=== PATIENT | female | born 1945 | race Caucasian/White ===

== ENCOUNTER → 2016-08-17 | Outpatient (CLI) | payer MEDICARE ==
--- NOTE | 2016-08-17 12:26 | MAM ---
EXAM DESCRIPTION: MAMMO BREAST DIAGNOSTIC BILATERAL Images were reviewed with R2 computer-aided detection. CLINICAL HISTORY: Breast pain. COMPARISON: No prior study is currently available. FINDINGS: Routine and Omid views are performed. Bilateral subglandular implants are in place, mammographically benign. Scattered glandular pattern. No dominant mass, architectural distortion or clustered microcalcification. IMPRESSION: Benign exam. BIRAD CATEGORY: 2 BENIGN RECOMMENDATION: FOLLOW-UP: Routine annual mammography. Mastodynia recommendations were given to the patient. Findings and recommendations were discussed with the patient. According to the [employer], yearly mammograms are recommended starting at age 40 and continuing as long as a woman is in good health. Any breast change noted on a breast self-exam should be reported promptly to the patient's healthcare provider. Breast MRI is recommended for women with an approximately 20-25% or greater lifetime risk of breast cancer, including women with a strong family history of breast or ovarian cancer and women who have been treated for Hodgkin's disease. Electronically signed by: Kalyn Cheung 08/17/2016 12:24
== END ==
LOC: MAMMO 11:23
PROVIDERS: ATTEND Family Medicine
DX: N64.4 Mastodynia (principal)
CPT/HCPCS: 77065; G0204

== ENCOUNTER → 2016-11-30 | Outpatient (CLI) | payer MEDICARE | END | disposition home or self-care (01) | LOC: GMAL 15:46 | PROVIDERS: ATTEND Family Medicine | DX: R53.82 Chronic fatigue, unspecified (principal); E55.9 Vitamin D deficiency, unspecified; D51.3 Other dietary vitamin B12 deficiency anemia ==

== ENCOUNTER → 2017-03-06 | Outpatient (CLI) | payer MEDICARE | END | disposition home or self-care (01) | LOC: GMAL 14:45 | PROVIDERS: ATTEND Family Medicine | DX: N30.00 Acute cystitis without hematuria (principal) ==

== ENCOUNTER → 2017-03-16 | Outpatient (CLI) | payer MEDICARE ==
--- NOTE | 2017-03-16 15:24 | CT ---
EXAM DESCRIPTION: CT ABDOMEN AND PELVIS WITH CONTRAST CLINICAL HISTORY: EPIGASTRIC ABDOMINAL PAIN COMPARISON: March 29, 2016 TECHNIQUE: CT of the abdomen and pelvis are performed during IV bolus administration of nonionic contrast. Oral contrast was not utilized. This exam was performed according to our departmental dose-optimization program, which includes automated exposure control, adjustment of the mA and/or kV according to patient size and/or use of iterative reconstruction technique. FINDINGS: Bilateral breast implants overlying the lower chest wall anteriorly with no significant infiltrate or mass or effusion at the lung bases. Two small cysts in the anterior left lobe of the liver and a tiny granulomatous calcification is unchanged from prior study. Cardiac pacing leads are noted in place within the right ventricle. The gallbladder appears surgically absent and a small normal spleen is noted fatty infiltrated pancreas is present without focal mass or acute inflammation. The adrenal glands are normal. Each kidney intensely enhances with a prominent extrarenal pelvis but no hydronephrosis noted on the right. The aorta is ectatic and calcified without significant aneurysm. No free abdominal air or mesenteric adenopathy is seen. Small and large bowel caliber are normal. A stool-filled normal cecum is noted without the appendix clearly identified. Diverticulosis of the left colon without acute diverticulitis is noted. The anterior abdominal wall is normal. An old moderately severe L1 compression deformity and anterior wedging is unchanged from 2016. Prior surgery posteriorly at the L5 level is suggested. The bladder and vaginal cuff are normal in appearance with surgical absence of the uterus. No adnexal masses are noted. Inguinal or iliac adenopathy is not apparent. IMPRESSION: 1. Surgical absence of the gallbladder and uterus and prior lower lumbar surgery at the L5 level. 2. No specific abnormality to explain the patient's epigastric pain noted. 3. Left colonic diverticulosis and old L1 compression deformity unchanged from prior 2016 study 4. Pacing leads within the right ventricle and incidental note of breast implants bilaterally Electronically signed by: Mark Liu MD 03/16/2017 3:23 PM CDT
== END | disposition home or self-care (01) ==
LOC: CT 11:01
DX: K57.90 Diverticulosis of intestine, part unspecified, without perforation or abscess without bleeding (principal); K76.89 Other specified diseases of liver

== ENCOUNTER → 2017-08-10 | Outpatient (CLI) | payer MEDICARE ==
--- NOTE | 2017-08-11 21:40 | CT ---
EXAM DATE: 08/10/2017 9:50 AM PHYSICIAN ANESTHESIOLOGIST. PROCEDURE: CT MAXILLOFACIAL WITHOUT IV CONTRAST. INDICATION: CHRONIC SINUSITIS. COMPARISON: 01/07/2015. TECHNIQUE: Axial CT images of the face were obtained without intravenous contrast. Coronal and sagittal reformatted images are provided. This exam was performed according to our departmental dose-optimization program which includes use of Automated Exposure Control, adjustment of the mA and/or kV according to patient size and/or use of iterative reconstruction technique. FINDINGS: The frontal sinuses, ethmoid sinuses, sphenoid air cells, and bilateral maxillary sinuses are well aerated. There is a tiny mucous retention cyst along the floor of the left maxillary sinus. The frontal sinus drainage pathways, the sphenoid ostia, the sphenoethmoidal recesses, and the right ostiomeatal unit are clear. There are postsurgical changes of prior left antrostomy. The nasoantral window is widely patent. There is slight leftward deviation of the nasal septum. The partially visualized intracranial contents are unremarkable. Bilateral lens replacements. Mastoid air cells are clear. Dental amalgam causes streak artifact. Symmetric muscles of mastication. IMPRESSION: Tiny mucous retention cyst along the floor of the left maxillary sinus. Otherwise unremarkable paranasal sinuses. No outflow tract obstruction. Postsurgical changes of prior left antrostomy. Widely patent nasoantral window. Electronically signed by: Marco A Bingham MD 08/11/2017 9:39 PM PHYSICIAN ANESTHESIOLOGIST
== END ==
LOC: CT 10:00
PROVIDERS: ATTEND Family Medicine
DX: J32.9 Chronic sinusitis, unspecified (principal); I10 Essential (primary) hypertension; J34.1 Cyst and mucocele of nose and nasal sinus

== ENCOUNTER → 2017-08-28 | Outpatient (CLI) | payer MEDICARE | LOC: GMAL 16:44 | PROVIDERS: ATTEND Family Medicine | DX: M31.6 Other giant cell arteritis (principal) ==

== ENCOUNTER 2017-10-05 17:53 | Emergency (ER) | payer MEDICARE ==
[2017-10-05 18:04] VITALS: TEMP 97.4; O2SAT 97
[2017-10-05] MEDS ORDERED: methylPREDNISolone SODIUM SUC 125 MG/2 ML VIAL IV ONE (18:18)
[2017-10-05] MEDS ORDERED: hydrOXYzine HCl 50 MG/ML VIAL IM ONE (18:19)
[2017-10-05] MEDS ORDERED: FAMOTIDINE IV PREMIX 20 MG in PREMIX BAG 1 BAG IVPB ONE (18:19)
--- NOTE | 2017-10-05 18:24 | ED.PDOC ---
History of Present Illness - History of Present Illness Initial Comments: 72 Y/O FEMALE, C/O ITCHING. REFERS THAT SHE HAS BEEN HAVING SOME CONGESTION AND COUGH X 2 WEEKS, (+) WHITE PHLEGM. SEEN BY PCP YESTERDAY AND WAS STARTED ON CEFDINIR. FEW HRS AFTER TAKING CEFDINIR, STARTED GENERALIZED ITCHING, SOME SOB AROUND 1400. ITCHING WAS GENERALIZED, MODERATE, CONSTANT. NO RASH. TOOK BENADRYL PO X2 AND ITCHING IS BETTER, SOB IS GONE. BP STARTED TO ELEVATE, TOOK AMLODIPINE. NOW PT C/O SHAKING, MILD, GENERALIZED, MAINLY UPPER BODY. DENIES FEVER, CP <Fabio Balbuena - Last Filed: 10/05/17 18:58> - General Source: patient - History of Present Illness Timing/Duration: other - 3 pm today Severity: moderate Improving Factors: nothing Worsening Factors: nothing Associated Symptoms: other - itching and tremors <Mike Ivey - Last Filed: 10/05/17 20:35> - General Chief Complaint: General Stated Complaint: Pt believes she is having an allergic reaction Time Seen by Provider: 10/05/17 18:09 - History of Present Illness Allergies/Adverse Reactions: Allergies Cefdinir Allergy (Verified 10/05/17 18:09) Other Itching Cephalexin [From Keflex] Allergy (Verified 10/05/17 18:09) Other Itching Penicillins Allergy (Verified 10/05/17 18:09) Other Itching Home Medications: Ambulatory Orders Apixaban [Eliquis] 2.5 mg PO BID 10/05/17 Gabapentin [Gabapentin] 100 mg PO BEDTIME 10/05/17 Irbesartan [Irbesartan] 75 mg PO BEDTIME 10/05/17 Omeprazole [Omeprazole] 40 mg PO BEDTIME 10/05/17 Oxcarbazepine [Oxcarbazepine] 300 mg PO BID 10/05/17 Phenytoin Sodium Extended [Phenytoin Sodium Extended] 100 mg PO BEDTIME Tiotropium [place]-Olodaterol [Stiolto Respimat 2.5-2.5 Mcg/Act] 1 spray INH DAILY 10/05/17 hydrOXYzine HCl [Atarax] 25 mg PO Q6HR PRN #20 tab 10/05/17 predniSONE 20 mg PO BID #10 tab 10/05/17 Review of Systems - Review of Systems Constitutional: Denies: chills, diaphoresis, fever, malaise EENTM: States: nose congestion. Denies: eye pain, blurred vision, tearing, double vision, ear pain, ear discharge Respiratory: States: cough, short of breath. Denies: stridor, wheezing Cardiology: Denies: chest pain, edema, palpitations, syncope Gastrointestinal/Abdominal: Denies: abdominal pain, constipation, diarrhea, nausea, vomiting Genitourinary: Denies: discharge, dysuria, frequency, hematuria Musculoskeletal: Denies: back pain, joint pain, joint swelling Skin: Denies: change in color, dryness, lesions, lumps, rash Neurological: States: no symptoms reported Endocrine: States: no symptoms reported Hematologic/Lymphatic: States: no symptoms reported <Fabio Balbuena Last Filed: 10/05/17 18:58> Past Medical History (General) - Patient Medical History Hx Seizures: Yes Hx Stroke: No Hx Dementia: No Hx Asthma: No Hx of COPD: Yes Hx Cardiac Disorders: Yes - A fib Hx Congestive Heart Failure: No Hx Pacemaker: Yes Hx Hypertension: Yes Hx Thyroid Disease: No Hx Diabetes: No Hx Gastroesophageal Reflux: Yes Hx Renal Disease: No Hx Cancer: No Hx of HIV: No Hx Hepatitis C: No Hx MRSA: No Surgical History: pacemaker, Hysterectomy - Vaccination History Hx Influenza Vaccination: Yes - Social History Hx Tobacco Use: No Hx Alcohol Use: No Hx Substance Use: No Hx Substance Use Treatment: No Hx Depression: No Hx Physical Abuse: No Hx Emotional Abuse: No <Fabio Balbuena Last Filed: 10/05/17 18:58> Family Medical History - Family History Mother Family History: No Known Living Status: <Fabio Balbuena Last Filed: 10/05/17 18:58> Physical Exam - Physical Exam General Appearance: Alert, Anxious Eye Exam: bilateral normal Ears, Nose, Throat: normal ENT inspection, normal pharynx Neck: non-tender, full range of motion, supple, normal inspection Respiratory: chest non-tender, lungs clear, normal breath sounds, no respiratory distress, no accessory muscle use Cardiovascular/Chest: normal peripheral pulses, regular rate, rhythm, no edema, no gallop Gastrointestinal/Abdominal: normal bowel sounds, non tender, soft, no organomegaly, no pulsatile mass Back Exam: normal inspection, no vertebral tenderness Extremity: normal range of motion, non-tender, normal inspection, no pedal edema Neurologic: cna gna II-XII nml as tested, no motor/sensory deficits, alert, normal mood/affect, oriented x 3, other - SOME TREMORS NOTED IN THE UPPER EXTREMITIES, BILATERAL. NO FOCAL NUMBNESS OR WEAKNESS Skin Exam: normal color, warm/dry Lymphatic: no adenopathy <Faboi Balbuena - Last Filed: 10/05/17 18:58> Progress - Progress Progress: 10/05/17 19:00 BETTER AFTER MEDS, LAB PENDING. TRANSFERRED CARE FROM DR BALBUENA TO DR Diony IVEY - EKG/XRAY/CT Comments: NSR 73X', AQRS: 81, QTc 431, PACs NO STT CHANGES. <Fabio Balbuena - Last Filed: 10/05/17 18:58> Departure <Fabio Balbuena - Last Filed: 10/05/17 18:58> <Mike Ivey - Last Filed: 10/05/17 20:35> - Departure Clinical Impression: Hyponatremia Allergic reaction caused by a drug Qualifiers: Encounter type: initial encounter Qualified Code(s): T78.40XA - Allergy, unspecified, initial encounter Disposition: Discharge to Home or Self Care Departure Forms: ED Discharge - Pt. Copy, Patient Portal Self Enrollment Instructions: DI for General Allergic Reactions Referrals: Paco Hallman III, MD [Primary Care Provider] - 1-2 Weeks Prescriptions: hydrOXYzine HCl [Atarax] 25 mg PO Q6HR PRN #20 tab PRN Reason: For Itching predniSONE 20 mg PO BID #10 tab Home Medications: Ambulatory Orders Apixaban [Eliquis] 2.5 mg PO BID 10/05/17 Gabapentin [Gabapentin] 100 mg PO BEDTIME 10/05/17 Irbesartan [Irbesartan] 75 mg PO BEDTIME 10/05/17 Omeprazole [Omeprazole] 40 mg PO BEDTIME 10/05/17 Oxcarbazepine [Oxcarbazepine] 300 mg PO BID 10/05/17 Phenytoin Sodium Extended [Phenytoin Sodium Extended] 100 mg PO BEDTIME Tiotropium [place]-Olodaterol [Stiolto Respimat 2.5-2.5 Mcg/Act] 1 spray INH DAILY 10/05/17 hydrOXYzine HCl [Atarax] 25 mg PO Q6HR PRN #20 tab 10/05/17 predniSONE 20 mg PO BID #10 tab 10/05/17
[2017-10-05] MEDS ORDERED: FAMOTIDINE IV PREMIX 50 ML IVPB ONE (18:36)
--- NOTE | 2017-10-05 18:48 | RAD ---
EXAM: Chest,1 View CLINICAL INDICATION: 72-year-old female with cough. TECHNIQUE: Single view, AP portable chest was obtained. COMPARISON: Single view chest 05/21/2016. FINDINGS: Stable cardiac and mediastinal silhouette. Heart size is normal. Atherosclerotic thoracic aorta. Pacemaker device overlies and obscures portions of the the LEFT hemithorax with leads intact at the level of the battery pack, stable in course and termination. Large lung volumes with flattening of the diaphragms raising the question of chronic obstructive pulmonary disease. Lungs are clear without focal opacity, pneumothorax or pleural effusions. The visualized bones are within normal limits. IMPRESSION: No acute cardiopulmonary abnormalities. Electronically signed by: Allison Bah MD 10/05/2017 6:45 PM CDT
[2017-10-05] MEDS ORDERED: SODIUM CHLORIDE 0.9% 1000ML 1,000 ML ONE (19:13)
[2017-10-05] MEDS ORDERED: SODIUM CHLORIDE 0.9% 500ML 500 ML IVS ONE (19:14)
[2017-10-05 19:32] VITALS: BP 166/73
== END 2017-10-05 20:15 | disposition home or self-care (01) ==
LOC: ER 17:53
DX: T78.40XA Allergy, unspecified, initial encounter (principal); E87.1 Hypo-osmolality and hyponatremia; J44.9 Chronic obstructive pulmonary disease, unspecified; I48.91 Unspecified atrial fibrillation; I10 Essential (primary) hypertension; K21.9 Gastro-esophageal reflux disease without esophagitis; Z95.0 Presence of cardiac pacemaker; Z79.01 Long term (current) use of anticoagulants; Z79.899 Other long term (current) drug therapy
CPT/HCPCS: 36415; 71045; 80053; 85025; 93005; J2930; J3410; J3490; J7030; J7040

== ENCOUNTER → 2017-10-08 | Outpatient (CLI) | payer MEDICARE ==
--- NOTE | 2017-10-08 14:59 | CT ---
Neck CT without intravenous contrast HISTORY:LYMPHADENOPATHY COMPARISON:None TECHNIQUE: Routine neck CT protocol from middle intracranial fossa to upper thorax without intravenous contrast administration. Image reformations in coronal and sagittal planes. Imaging was performed with automated exposure protocol to minimize radiation dose. FINDINGS: Image quality limitations due to lack of intravenous contrast, as well as extensive metallic artifacts arising from dental amalgam. Visualized portions of intracranial contents demonstrate no concerning finding. Paranasal sinuses, middle ear cavities and mastoid air cells are well aerated. Visualized portions of orbits are unremarkable in appearance. Maintained bony alignment in upper cervical spine without focal injury. No inflammatory process is clearly identified in peritonsillar nor retropharyngeal spaces, areas of obscured by dental metallic artifacts.. Mucosal margins of the nasopharynx, oropharynx, hypopharynx and subglottic airway are unremarkable in appearance. Vocal folds are midline in position and symmetric in appearance. No concerning mass nor bulky lymphadenopathy identified along the neck. Numerous small lymph nodes scattered along the cervical chains of the neck. No pathologic lymphadenopathy in upper mediastinum. Limited visualization of the lung apices demonstrate centrilobular emphysematous changes.. IMPRESSION: 1. Suboptimal study. No concerning lymphadenopathy along the neck. 2. Unremarkable patency of the airway. Electronically signed by: Galen uRsso MD 10/08/2017 2:58 PM CDT
== END ==
LOC: CT 13:18
PROVIDERS: ATTEND Family Medicine
DX: R59.9 Enlarged lymph nodes, unspecified (principal)

== ENCOUNTER 2017-10-26 23:05 | Emergency (ER) | payer MEDICARE ==
[2017-10-26] MEDS ORDERED: diazePAM 2 MG TAB PO ONE (23:31)
[2017-10-26] MEDS ORDERED: HYDROcodone 5MG/APAP 325MG 1 EA TAB PO ONE (23:31)
[2017-10-26] MEDS ORDERED: ASPIRIN TABLET 325 MG TAB PO ONE (23:31)
--- NOTE | 2017-10-26 23:35 | ED.PDOC ---
History of Present Illness - General Chief Complaint: Chest Pain/MO Stated Complaint: chest pain Time Seen by Provider: 10/26/17 23:16 Source: patient Exam Limitations: no limitations - History of Present Illness Initial Comments: the patient is a 72-year-old female came to the emergency room secondary to her blood pressures rising this evening with some associated shortness of breath. She has had several episodes like this over the years. The patient reportedly had a catheterization 1-2 years ago showing no disease that required any intervention. She sees a diesel service technician in the [facility] area. The patient has recently had a worsening of her trigeminal neuralgia and has been having some increased pain. Along the same time frame she has been having to take her amlodipine for her blood pressures remaining higher. No real chest pain today just mainly some mild shortness of breath. The patient does have some anxiety issues. No palpitations. No syncope or near syncope. No pain with movement. No fevers or sore throat. Timing/Duration: 4-6 hours Severity: moderate Improving Factors: medication Worsening Factors: nothing Associated Symptoms: shortness of breath Allergies/Adverse Reactions: Allergies Cefdinir Allergy (Verified 10/05/17 18:09) Other Itching Cephalexin [From Keflex] Allergy (Verified 10/05/17 18:09) Other Itching Penicillins Allergy (Verified 10/05/17 18:09) Other Itching Home Medications: Ambulatory Orders Apixaban [Eliquis] 2.5 mg PO BID 10/05/17 Gabapentin [Gabapentin] 100 mg PO BEDTIME 10/05/17 Irbesartan [Irbesartan] 75 mg PO BEDTIME 10/05/17 Omeprazole [Omeprazole] 40 mg PO BEDTIME 10/05/17 Oxcarbazepine [Oxcarbazepine] 300 mg PO BID 10/05/17 Phenytoin Sodium Extended [Phenytoin Sodium Extended] 100 mg PO BEDTIME Tiotropium [place]-Olodaterol [Stiolto Respimat 2.5-2.5 Mcg/Act] 1 spray INH DAILY 10/05/17 hydrOXYzine HCl [Atarax] 25 mg PO Q6HR PRN #20 tab 10/05/17 predniSONE 20 mg PO BID #10 tab 10/05/17 Review of Systems - Review of Systems Constitutional: States: no symptoms reported EENTM: States: no symptoms reported Respiratory: States: short of breath Cardiology: States: no symptoms reported Gastrointestinal/Abdominal: States: no symptoms reported Genitourinary: States: no symptoms reported Musculoskeletal: States: no symptoms reported Skin: States: no symptoms reported Neurological: States: anxiety Endocrine: States: no symptoms reported All other Systems: No Change from Baseline Past Medical History (General) - Patient Medical History Hx Seizures: Yes Hx Stroke: No Hx Dementia: No Hx Asthma: No Hx of COPD: Yes Hx Cardiac Disorders: Yes - A fib Hx Congestive Heart Failure: No Hx Pacemaker: Yes Hx Hypertension: Yes Hx Thyroid Disease: No Hx Diabetes: No Hx Gastroesophageal Reflux: Yes Hx Renal Disease: No Hx Cancer: No Hx of HIV: No Hx Hepatitis C: No Hx MRSA: No - Vaccination History Hx Influenza Vaccination: Yes - Social History Hx Tobacco Use: No Hx Alcohol Use: No Hx Substance Use: No Hx Substance Use Treatment: No Hx Depression: No Hx Physical Abuse: No Hx Emotional Abuse: No Family Medical History - Family History Mother Family History: No Known Living Status: Physical Exam - Physical Exam General Appearance: Alert, Anxious, No apparent distress Eye Exam: bilateral normal Ears, Nose, Throat: hearing grossly normal, normal ENT inspection, normal pharynx Neck: full range of motion, supple Respiratory: lungs clear, normal breath sounds, no respiratory distress, no accessory muscle use Cardiovascular/Chest: normal peripheral pulses, regular rate, rhythm, no edema Peripheral Pulses: radial,right: 2+, radial,left: 2+, dorsalis pedis,right: 2+, dorsalis pedis,left: 2+ Gastrointestinal/Abdominal: non tender, soft Rectal Exam: deferred Back Exam: normal inspection, no CVA tenderness, no vertebral tenderness Extremity: non-tender, normal inspection, no pedal edema, normal capillary refill Neurologic: comb machine operator II-XII nml as tested - the patient is rather anxious, alert, oriented x 3 Skin Exam: normal color Progress - Progress Progress: 10/27/17 04:25 the patient is a 72-year-old female presenting to the emergency room secondary to symptomatic hypertensive urgency. The patient did ultimately receive a dose of clonidine here. Controlling the blood pressure did help control her symptoms. Additionally pain from her trigeminal neuralgia and anxiety likely to contributed to the hypertension as well. She needs to follow up with her primary care doctor early next week. consideration could be given to increasing the amlodipine dose if blood pressures remain higher over time. The patient is doing well at discharge. Follow-up with primary care doctor early next week. eR warnings were given for any worsening. - Results/Orders Results/Orders: EKG shows normal sinus rhythm at a rate of 81 bpm. Mild right axis deviation. Short NH. Slight poor R-wave progression in anterior leads. No definitive acute ST segment changes concerning for immediate ischemia. She does have some left atrial dilation. There is possibly a U wavein several leads. chest x-ray shows no evidence of any acute changes. No pneumonia. No fluid overload. Laboratory Results - last 24 hr 10/26/17 10/26/17 10/26/17 00:02 23:35 23:35 WBC 8.6 RBC 4.44 Hgb 13.8 Hct 41.5 MCV 93.3 MCH 31.1 H MCHC 33.3 RDW 14.1 Plt Count 312 MPV 8.3 Absolute Neuts (auto) 5.70 Absolute Lymphs (auto) 1.60 Absolute Monos (auto) 0.90 H Absolute Eos (auto) 0.20 Absolute Basos (auto) 0.10 Neutrophils % 66.6 Lymphocytes % 18.9 L Monocytes % 10.7 H Eosinophils % 2.6 Basophils % 1.2 PT INR PTT (SP) Sodium 136 Potassium 4.0 Chloride 102 Carbon Dioxide 28 Anion Gap 10.0 L BUN 9 Creatinine 0.52 L BUN/Creatinine Ratio 17.3 Random Glucose 119 H Serum Osmolality 271.8 L Calcium 9.6 Magnesium 2.0 Total Bilirubin 0.6 AST 16 ALT 10 Alkaline Phosphatase 42 Creatine Kinase 23 L CK-MB (CK-2) 1.2 CK-MB (CK-2) % Not Reportable Troponin I < 0.02 B-Natriuretic Peptide 94.9 Serum Total Protein 7.2 Albumin 4.2 Globulin 3.0 Albumin/Globulin Ratio 1.4 Urine Color Yellow Urine Appearance Clear Urine pH 6.0 Ur Specific [place] 1.010 Urine Protein Negative Urine Glucose (UA) Negative Urine Ketones Negative Urine Blood Negative Urine Nitrite Negative Urine Bilirubin Negative Urine Urobilinogen 0.2 Ur Leukocyte Esterase Negative Urine RBC 0-1 Urine WBC 0-1 Ur Epithelial Cells 3-5 Urine Bacteria 0 10/26/17 10/27/17 23:35 03:25 WBC RBC Hgb Hct MCV MCH MCHC RDW Plt Count MPV Absolute Neuts (auto) Absolute Lymphs (auto) Absolute Monos (auto) Absolute Eos (auto) Absolute Basos (auto) Neutrophils % Lymphocytes % Monocytes % Eosinophils % Basophils % PT 12.3 INR 1.060 PTT (SP) 35.8 Sodium Potassium Chloride Carbon Dioxide Anion Gap BUN Creatinine BUN/Creatinine Ratio Random Glucose Serum Osmolality Calcium Magnesium Total Bilirubin AST ALT Alkaline Phosphatase Creatine Kinase 19 L CK-MB (CK-2) 1.1 CK-MB (CK-2) % Not Reportable Troponin I < 0.02 B-Natriuretic Peptide Serum Total Protein Albumin Globulin Albumin/Globulin Ratio Urine Color Urine Appearance Urine pH Ur Specific [place] Urine Protein Urine Glucose (UA) Urine Ketones Urine Blood Urine Nitrite Urine Bilirubin Urine Urobilinogen Ur Leukocyte Esterase Urine RBC Urine WBC Ur Epithelial Cells Urine Bacteria Departure - Departure Clinical Impression: Hypertensive urgency Disposition: Discharge to Home or Self Care Condition: Fair Departure Forms: ED Discharge - Pt. Copy, Patient Portal Self Enrollment Instructions: DI for Malignant Hypertension Diet: regular diet Activity: increase activity as tolerated Referrals: Paco Hallman III, MD [Primary Care Provider] - 1-2 Weeks Home Medications: Ambulatory Orders Apixaban [Eliquis] 2.5 mg PO BID 10/05/17 Gabapentin [Gabapentin] 100 mg PO BEDTIME 10/05/17 Irbesartan [Irbesartan] 75 mg PO BEDTIME 10/05/17 Omeprazole [Omeprazole] 40 mg PO BEDTIME 10/05/17 Oxcarbazepine [Oxcarbazepine] 300 mg PO BID 10/05/17 Phenytoin Sodium Extended [Phenytoin Sodium Extended] 100 mg PO BEDTIME Tiotropium [place]-Olodaterol [Stiolto Respimat 2.5-2.5 Mcg/Act] 1 spray INH DAILY 10/05/17 hydrOXYzine HCl [Atarax] 25 mg PO Q6HR PRN #20 tab 10/05/17 predniSONE 20 mg PO BID #10 tab 10/05/17 Additional Instructions: the patient is a 72-year-old female presenting to the emergency room secondary to symptomatic hypertensive urgency. The patient did ultimately receive a dose of clonidine here. Controlling the blood pressure did help control her symptoms. Additionally pain from her trigeminal neuralgia and anxiety likely to contributed to the hypertension as well. She needs to follow up with her primary care doctor early next week. consideration could be given to increasing the amlodipine dose if blood pressures remain higher over time. The patient is doing well at discharge. Follow-up with primary care doctor early next week. eR warnings were given for any worsening.
--- NOTE | 2017-10-27 00:27 | RAD ---
EXAM DESCRIPTION: Chest,2 Views CLINICAL HISTORY: 72 years Female sob COMPARISON: 10/05/2017 FINDINGS: Heart size and mediastinal contour within normal limits. Pacemaker in place. Lungs are hyperinflated compatible COPD. No free fluid or consolidation. IMPRESSION: No acute abnormality is identified. Electronically signed by: Loretta Cheek MD 10/27/2017 12:26 AM CDT
[2017-10-27] MEDS ORDERED: cloNIDine HCL 0.1 MG TAB PO ONE (00:36)
[2017-10-27 03:46] VITALS: O2SAT 97
[2017-10-27 04:39] VITALS: BP 127/69; TEMP 97.3
== END 2017-10-27 04:39 | disposition home or self-care (01) ==
LOC: ER 23:05
DX: I16.0 Hypertensive urgency (principal); J44.9 Chronic obstructive pulmonary disease, unspecified; I48.91 Unspecified atrial fibrillation; F41.9 Anxiety disorder, unspecified; K21.9 Gastro-esophageal reflux disease without esophagitis; Z79.01 Long term (current) use of anticoagulants; Z79.899 Other long term (current) drug therapy

== ENCOUNTER → 2017-11-16 | Outpatient (CLI) | payer MEDICARE ==
--- NOTE | 2017-11-16 13:33 | CT ---
EXAM DESCRIPTION: Head w/wo Contrast. Computed Tomography. CLINICAL HISTORY: Neurology consult. COMPARISON: CT neck soft tissues 10/08/2017. TECHNIQUE: Nonhelical-axial scans through the head and brain at 5.0 mm intervals, without IV contrast and nonhelical axial 2.5 mm thickness scans with nonionic IV contrast. 2.0 reconstructions. No adverse reactions. Total Exam DLP: 1504.95 mGy-cm. This exam was performed according to our departmental CT dose-optimization program which includes automated exposure control, adjustment of the mA and/or kV according to patient size and/or use of iterative reconstruction technique; to reduce radiation dose to as low as reasonably achievable (ALARA). FINDINGS: No extra-axial hemorrhage. No mass-effect and no midline shift. Normal contrast enhancement. Focal low-density in the left basal ganglia not enhancing, no hemorrhage. Vascular calcifications anterior; physiologic calcifications in the pineal gland and choroid plexus. No effacement or displacement of the ventricles, CSF spaces, or subdural spaces. Normal contrast enhancement. Prominence of the spaces is age appropriate. No extra axial fluid collection or abnormal contrast enhancement. No gross abnormalities of the bony calvarium. No unusual enhancement in the [place]. No posterior communicating artery on the left. IMPRESSION: 1. No hemorrhage. No mass effect or midline shift.. Possible old small lacunar infarct the left basal ganglia. No mass effect hemorrhage or abnormal enhancement. 2. CT scans are insensitive for detecting small CVA's in the first 24 hours after onset. Evaluation of the brain stem is also limited. If symptoms persist, consider MRI scan of the brain with diffusion imaging. Electronically signed by: Denton Kemp MD 11/16/2017 1:31 PM CDT
== END ==
LOC: CT 10:30
PROVIDERS: ATTEND Psychiatry & Neurology Neurology
DX: G50.0 Trigeminal neuralgia (principal)

== ENCOUNTER 2017-12-07 09:10 | Emergency (ER) | payer MEDICARE ==
[2017-12-07 09:25] VITALS: TEMP 97.7
[2017-12-07] MEDS ORDERED: NITROGLYCERIN 0.4 MG 25 EA TAB SL ONE ×2 (09:26→09:31)
--- NOTE | 2017-12-07 09:28 | ED.PDOC ---
History of Present Illness - General Chief Complaint: Chest Pain/NE Stated Complaint: right arm pain,chest tightness Time Seen by Provider: 12/07/17 09:17 Source: patient Exam Limitations: no limitations - History of Present Illness Initial Comments: Maggie Brothers 72 y/o female came to er with onset of sharp burning pain on right upper limb which radiated to her back of neck and felt hot;took one NTG pill at home which diminished her symptoms .On arrival here stated symptoms coming back.Denies previous NE but with a.fib on NOAC. Timing/Duration: 1-3 hours Severity: moderate Location: other - right upper limb Activities at Onset: rest Prior Chest Pain/Cardiac Workup: echocardiography, other - afib Worsening Factors: nothing Nitro Today/Relief: 0.4 mg x 1 Aspirin Treatment Today: no aspirin today - was taken off aspirin Associated Symptoms: other - takes eliquis-NOAC Allergies/Adverse Reactions: Allergies Cefdinir Allergy (Verified 10/05/17 18:09) Other Itching Cephalexin [From Keflex] Allergy (Verified 10/05/17 18:09) Other Itching Penicillins Allergy (Verified 10/05/17 18:09) Other Itching Home Medications: Ambulatory Orders Apixaban [Eliquis] 2.5 mg PO BID 10/05/17 Gabapentin [Gabapentin] 100 mg PO BEDTIME 10/05/17 Irbesartan [Irbesartan] 75 mg PO BEDTIME 10/05/17 Omeprazole [Omeprazole] 40 mg PO BEDTIME 10/05/17 Oxcarbazepine [Oxcarbazepine] 300 mg PO BID 10/05/17 Phenytoin Sodium Extended [Phenytoin Sodium Extended] 100 mg PO BEDTIME Tiotropium [place]-Olodaterol [Stiolto Respimat 2.5-2.5 Mcg/Act] 1 spray INH DAILY 10/05/17 hydrOXYzine HCl [Atarax] 25 mg PO Q6HR PRN #20 tab 10/05/17 Review of Systems - Review of Systems Constitutional: States: no symptoms reported EENTM: States: no symptoms reported Respiratory: States: no symptoms reported Cardiology: States: no symptoms reported Gastrointestinal/Abdominal: States: no symptoms reported Genitourinary: States: no symptoms reported Musculoskeletal: States: see HPI, other - RUE pain All other Systems: Reviewed and Negative, No Change from Baseline Past Medical History (General) - Patient Medical History Hx Seizures: Yes Hx Stroke: No Hx Dementia: No Hx Asthma: No Hx of COPD: Yes Hx Cardiac Disorders: Yes - A fib Hx Congestive Heart Failure: No Hx Pacemaker: Yes Hx Hypertension: Yes Hx Thyroid Disease: No Hx Diabetes: No Hx Gastroesophageal Reflux: Yes Hx Renal Disease: No Hx Cancer: No Hx of HIV: No Hx Hepatitis C: No Hx MRSA: No Surgical History: cholecystectomy, pacemaker, other - hysterectomy,neck,sinus, lower back - Vaccination History Hx Influenza Vaccination: Yes Hx Pneumococcal Vaccination: Yes - Social History Hx Tobacco Use: Yes Hx Alcohol Use: No Hx Substance Use: No Hx Substance Use Treatment: No Hx Depression: No Hx Physical Abuse: No Hx Emotional Abuse: No Family Medical History - Family History Mother Family History: No Known Living Status: Physical Exam - Physical Exam General Appearance: Alert, Comfortable, No apparent distress Eyes, Ears, Nose, Throat Exam: normal ENT inspection Neck: non-tender, full range of motion, supple, normal inspection Respiratory: chest non-tender, lungs clear, normal breath sounds Cardiovascular/Chest: normal peripheral pulses, regular rate, rhythm, no murmur Peripheral Pulses: radial,right: 2+, radial,left: 2+ Gastrointestinal/Abdominal: normal bowel sounds, non tender, soft, no organomegaly Extremity: normal inspection, no pedal edema, normal capillary refill Neurologic: no motor/sensory deficits, alert, normal mood/affect Skin Exam: normal color, warm/dry Progress - Progress Progress: 12/07/17 09:37 Vital Signs - 8 hr 12/07/17 09:21 Temperature 97.7 F Pulse Rate [ 78 Left Brachial] Respiratory 20 Rate Blood Pressure 171/80 [Left Arm] O2 Sat by Pulse 98 Oximetry 12/07/17 12:42 Recommended hospital obs after discussing all lab test ,ekg and chest x ray result initial test did not show myocardial injury she stated feels fine wants to go home and to come back if symptoms worsens stating that her blood pressure been up lately.Advised to take extra dose of Amlodipine 5 mg po and to log all blood pressure readings to show it to her Md. - Results/Orders Results/Orders: Vital Signs - 8 hr 12/07/17 12/07/17 12/07/17 09:21 09:53 10:10 Temperature 97.7 F Pulse Rate [ 78 78 67 Left Brachial] Respiratory 20 20 Rate Blood Pressure 171/80 161/76 [Left Arm] O2 Sat by Pulse 98 96 Oximetry 12/07/17 11:24 Temperature Pulse Rate [ 71 Left Brachial] Respiratory 16 Rate Blood Pressure 180/78 [Left Arm] O2 Sat by Pulse 97 Oximetry 12/07/17 09:45 EKG STAT Laboratory Results - last 24 hr 12/07/17 12/07/17 09:30 11:30 WBC 6.8 RBC 4.49 Hgb 13.8 Hct 41.3 MCV 92.0 MCH 30.7 MCHC 33.4 RDW 14.3 Plt Count 281 MPV 8.9 Absolute Neuts (auto) 4.70 Absolute Lymphs (auto) 1.10 Absolute Monos (auto) 0.70 Absolute Eos (auto) 0.20 Absolute Basos (auto) 0.10 Neutrophils % 69.5 Lymphocytes % 16.9 L Monocytes % 9.6 H Eosinophils % 2.7 Basophils % 1.3 PT 11.5 INR 0.990 PTT (SP) 32.5 Sodium 137 Potassium 5.3 H Chloride 101 Carbon Dioxide 30 Anion Gap 11.3 L BUN 14 Creatinine 0.76 BUN/Creatinine Ratio 18.4 Random Glucose 108 H Serum Osmolality 274.8 L Calcium 9.8 Magnesium 2.0 Total Bilirubin 0.7 Direct Bilirubin < 0.1 Indirect Bilirubin 0.6 AST 19 ALT 12 Alkaline Phosphatase 40 L Creatine Kinase 30 CK-MB (CK-2) 1.0 CK-MB (CK-2) % Not Reportable Troponin I < 0.02 < 0.02 B-Natriuretic Peptide 382.0 H* Serum Total Protein 6.7 Albumin 3.9 - EKG/XRAY/CT EKG: Sinus, no ST T wave changes Comments: HR-83 XRAY: chest - cardiac pacemaker,no acute cardiopulmonary abnormalities Departure - Departure Clinical Impression: Right upper limb pain High blood pressure Qualifiers: Hypertension type: unspecified Qualified Code(s): I10 - Essential (primary) hypertension Time of Disposition: 12:48 Disposition: Discharge to Home or Self Care Departure Forms: ED Discharge - Pt. Copy, Patient Portal Self Enrollment Instructions: DI for Chest Pain Diet: low fat, low cholesterol, low salt diet Referrals: Paco Hallman III, MD [Primary Care Provider] - 1-2 Weeks Home Medications: Ambulatory Orders Apixaban [Eliquis] 2.5 mg PO BID 10/05/17 Gabapentin [Gabapentin] 100 mg PO BEDTIME 10/05/17 Irbesartan [Irbesartan] 75 mg PO BEDTIME 10/05/17 Omeprazole [Omeprazole] 40 mg PO BEDTIME 10/05/17 Oxcarbazepine [Oxcarbazepine] 300 mg PO BID 10/05/17 Phenytoin Sodium Extended [Phenytoin Sodium Extended] 100 mg PO BEDTIME Tiotropium [place]-Olodaterol [Stiolto Respimat 2.5-2.5 Mcg/Act] 1 spray INH DAILY 10/05/17 hydrOXYzine HCl [Atarax] 25 mg PO Q6HR PRN #20 tab 10/05/17 Additional Instructions: Continue with all home meds;Return to ER as Needed;Follow up with primary Md 10 December 2017
--- NOTE | 2017-12-07 09:48 | RAD ---
EXAM DESCRIPTION: Chest,1 View CLINICAL HISTORY: pain COMPARISON: October 26, 2017 FINDINGS: A dual-lead cardiac pacemaker remains in place. The cardiomediastinal silhouette is unremarkable. Postoperative changes are noted in the cervical spine. There is no airspace consolidation or pleural effusion. The bronchovascular markings are within normal limits, and the lungs are not hyperinflated. There is no pneumothorax or acute fracture. IMPRESSION: Cardiac pacemaker, but no acute intrathoracic abnormality. Electronically signed by: Waqas Crawford MD 12/07/2017 9:46 AM CDT
[2017-12-07 11:25] VITALS: O2SAT 97
[2017-12-07 12:54] VITALS: BP 184/82
== END 2017-12-07 12:53 | disposition home or self-care (01) ==
LOC: ER 09:10
DX: M79.601 Pain in right arm (principal); I10 Essential (primary) hypertension; I48.91 Unspecified atrial fibrillation; Z95.0 Presence of cardiac pacemaker; J44.9 Chronic obstructive pulmonary disease, unspecified; K21.9 Gastro-esophageal reflux disease without esophagitis; Z79.01 Long term (current) use of anticoagulants

== ENCOUNTER → 2018-01-15 | Outpatient (CLI) | payer MEDICARE | LOC: GMATM 16:46 | PROVIDERS: ATTEND Nurse Practitioner Family | DX: N39.0 Urinary tract infection, site not specified (principal) ==

== ENCOUNTER → 2018-03-14 | Outpatient (CLI) | payer MEDICARE ==
--- NOTE | 2018-03-14 11:58 | CT ---
EXAM DESCRIPTION: CTA Abdomen CLINICAL HISTORY: 72 years Female, ABDOMINAL PAIN, swelling COMPARISON: Previous CT abdomen and pelvis dated March 16, 2017 TECHNIQUE: [address] scanning through the lower chest and upper abdomen to the level of the mid false pelvis was performed for CT abdominal angiography. Shaded surface display images and MIP images are evaluated with mediolateral stent display. Coronal and sagittal reformatted MIP images are also evaluated. FINDINGS: In the lower chest, lungs are clear and heart size is normal. Cardiac pacemaker lead is in place. Lower thoracic descending aorta at the level of the diaphragmatic hiatus is ectatic measuring 3.4 cm in diameter. This previously measured 3.3 cm in March 2017. Normal enhancement of celiac and superior mesenteric arteries with no stenosis evident on axial images. Positive enhancement of bilateral renal arteries without origin stenosis of significance evident on axial images. Mild arteriosclerotic changes are seen in the proximal right renal artery with mild tortuosity. Normal symmetrical renal cortical enhancement. The physician order indicates interest in the mesenteric artery which appears widely patent. Coronal images show normal enhancement of the peripheral branches of the SMA. Normal early enhancement of the liver, spleen, pancreas and kidneys with normal adrenal glands. Gallbladder is not seen, evidently surgically absent. Fatty replacement of the head of the pancreas is noted. No retroperitoneal or mesenteric mass or adenopathy. Small low density foci in the upper left and upper right lobes of the liver are consistent with small cysts. Calcified granuloma in the anterior left lobe of the liver is small. No infrarenal abdominal aortic aneurysm. Below the renal arteries, aorta tapers distally with caliber gradually decreasing from 2 cm to 1.4 cm. Normal caliber of common iliac arteries with arteriosclerotic plaque present causing mild narrowing. Plaque is seen in the proximal right and left internal and external iliac arteries. The more distal vessels are not included on the exam. Postoperative changes are seen in the lower L-spine. Spin display shaded surface display imaging shows prominence of the aorta above the level of the celiac axis as noted above. No infrarenal aneurysm. Coronal reformatted images show 40% narrowing of the origin of the right renal artery by arteriosclerotic plaque. No stenosis of the left renal artery origin. Small accessory left renal artery is present serving the lower pole. Positive enhancement of the inferior mesenteric artery with approximately 50% origin stenosis by plaque. Sagittal reformatted images show 30% narrowing of the origin of the celiac axis by calcified plaque. Widely patent origin of the superior mesenteric artery is seen with no stenosis of the more peripheral aspects of the superior mesenteric artery. Sagittal reformatted images show chronic vertebral compression at L1 with old healed retropulsed fragment minimally compromising the spinal canal. Emphysematous changes are seen in the lower lobes of the lungs. IMPRESSION: Above the celiac axis, ectatic abdominal aorta at the level of the diaphragmatic hiatus measures 3.4 cm, slightly larger than on previous study in March 2017. No infrarenal abdominal aortic aneurysm. Celiac axis 30% origin stenosis. Widely patent superior mesenteric artery. Two left renal arteries without stenoses. Right renal artery 30% origin stenosis. This exam was performed according to our departmental dose-optimization program, which includes automated exposure control, adjustment of the mA and/or kV according to patient size and/or use of iterative reconstruction technique. Electronically signed by: Aram Alanis MD 03/14/2018 11:57 AM CDT
== END ==
LOC: CT 08:11
PROVIDERS: ATTEND Internal Medicine
DX: R10.13 Epigastric pain (principal); R14.2 Eructation; K59.00 Constipation, unspecified; R10.30 Lower abdominal pain, unspecified

== ENCOUNTER → 2018-04-01 | Outpatient (CLI) | payer MEDICARE ==
--- NOTE | 2018-04-01 20:40 | RAD ---
EXAM DESCRIPTION: UGI: Rad-Fluoroscopy. CLINICAL HISTORY: EPIGASTRIC PAIN COMPARISON: CTA abdomen 03/14/2018. TECHNIQUE: The patient swallowed gas-producing granules, water, and and Gastrografin-water mixture 1:1, under fluoroscopic visualization. The images were obtained with the patient standing and horizontal.. Patient drank medium density barium through a straw in the semi-prone position. 83 fluoroscopic cine loop images. 20 static fluoroscopic images. Total fluoroscopy time was 2.8. DAP: 10.33 Gy-cm2.. FINDINGS: Primary peristaltic wave was seen to the level of the distal esophagus where secondary and tertiary contractions were visualized. Patient has a small sliding hiatal hernia. Marked gastroesophageal reflux spontaneously to the level of the thoracic inlet, with patient moving from prone to supine and prone. On the lateral view, there is question of pharyngeal penetration but no aspiration and no coughing was seen. Stomach was well distended with gas and oral contrast. The antrum was not well coated with contrast. The segments of the stomach show no mucosal lesions or mass effect. No mucosal lesions or mass effect in the duodenum. The sweep is unremarkable. IMPRESSION: 1. Possible laryngeal penetration without aspiration or coughing. Correlate with clinical findings. 2. Primary peristaltic wave to the distal esophagus with secondary and tertiary contractions just above the gastroesophageal junction. 3. Marked gastroesophageal reflux while rolling in the horizontal position. Small sliding hiatal hernia. 4. No large mucosal lesions or mass effect on the duodenum or stomach. Electronically signed by: Denton Kemp MD 04/01/2018 8:38 PM CDT
== END ==
LOC: RAD 09:00
PROVIDERS: ATTEND Internal Medicine
DX: R10.13 Epigastric pain (principal); K21.9 Gastro-esophageal reflux disease without esophagitis

== ENCOUNTER → 2018-06-12 | Outpatient (CLI) | payer MEDICARE ==
--- NOTE | 2018-06-13 12:02 | CT ---
EXAM DESCRIPTION: Lumbar Spine CLINICAL HISTORY: RADICULOPATHY right leg radiculopathy COMPARISON: CT the abdomen dated 14 March 2018 TECHNIQUE: Transaxial images were obtained without intravenous contrast media. Sagittal and coronal reconstruction was performed. This exam was performed according to our departmental dose-optimization program, which includes automated exposure control, adjustment of the mA and/or kV according to patient size and/or use of iterative reconstruction technique. FINDINGS: There is good alignment of the lumbar spine. Compression of the L1 vertebral body is observed. Prior laminectomy at the L5 level is demonstrated. Some ectasia of the abdominal aorta is observed. No further extra spinous abnormality is detected. L1-2: Compression of the L1 vertebral body is observed. It has lost two thirds of its vertebral body height. It remains unchanged when compared to the prior CT. No disc bulge or disc herniation is seen. No neural foraminal disease is detected. L2-3: A central annular bulge is observed. No neural foraminal disease of significance is detected. L3-4: Unremarkable. L4-5: Unremarkable. L5-S1: There is evidence of prior laminectomy at this level. A minimal annular bulge is evident. The the left neural foramen is patent. There is mild narrowing of the right neural foramen. Mild endplate degenerative changes are observed. IMPRESSION: 1. A compression fracture of the L1 vertebral body is observed unchanged from a prior CT obtained in March of this year. 2. Mild right neural foraminal narrowing is observed at the L5-S1 level. There is also some minimal annular bulging present. There is evidence of a prior laminectomy at this level. Electronically signed by: Paco Bhagat MD 06/13/2018 12:00 PM [facility]
== END ==
LOC: CT 13:32
PROVIDERS: ATTEND Family Medicine
DX: M54.16 Radiculopathy, lumbar region (principal); M48.56XD Collapsed vertebra, not elsewhere classified, lumbar region, subsequent encounter for fracture with routine healing

== ENCOUNTER → 2018-10-30 | Outpatient (CLI) | payer MEDICARE ==
--- NOTE | 2018-10-30 16:43 | CT ---
EXAM DESCRIPTION: Abdomen/Pelvis w/Contrast CLINICAL HISTORY: 73 years Female, R10.84 COMPARISON: CT angiogram of the abdomen dated 03/14/2018. TECHNIQUE: Contiguous 3 mm axial images were obtained from the lung bases to the level of the proximal femora after the administration of intravenous and oral contrast. Sagittal and coronal reconstructions were reviewed. FINDINGS: THORAX: The imaged lower thorax demonstrates no gross abnormality. LIVER: Few too small to characterize hypodense lesions are identified in the right and left hepatic lobe. GALLBLADDER: Surgically absent. PANCREAS: Appears normal with no cystic or solid lesions. SPLEEN: Normal ADRENAL GLANDS: Normal with no nodules or masses. KIDNEYS: Both kidneys enhance symmetrically with no hydronephrosis or nephrolithiasis or perinephric fluid collections. No focal masses are identified. The visualized ureters appear grossly unremarkable. STOMACH: The stomach is well-distended with no gross abnormality. SMALL BOWEL: The small bowel loops demonstrate variable degrees of distention with no abnormal dilatation or other signs to suggest bowel obstruction. LARGE BOWEL: Multiple diverticula are noted throughout the sigmoid colon, with no acute diverticulitis. No evidence of free intraperitoneal air or fluid. RETROPERITONEUM: The abdominal aorta is nonaneurysmal with moderate atherosclerosis. The descending thoracic aorta above the level of the diaphragmatic hiatus measures 3.5 cm in greatest dimension. The inferior vena cava is normal in size and caliber. No abnormally enlarged retroperitoneal lymph nodes are identified. URINARY BLADDER:The urinary bladder is well-distended with no gross abnormality. The uterus and ovaries are surgically absent. ADDITIONAL FINDINGS: None. BONES: Mild degenerative changes are identified in the visualized bones. Stable compression deformity of L1 vertebral body. IMPRESSION: 1. No acute intra-abdominal or intrapelvic process. 2. Colonic diverticulosis. 3. Descending thoracic aorta above the level of the diaphragmatic hiatus measures 3.5 cm in greatest dimension. Follow-up with CT angiogram is recommended in one year. This exam was performed according to our departmental dose-optimization program, which includes automated exposure control, adjustment of the mA and/or kV according to patient size and/or use of iterative reconstruction technique. Electronically signed by: Ashley Marte MD 10/30/2018 4:39 PM CDT
== END ==
LOC: CT 08:01
PROVIDERS: ATTEND Family Medicine
DX: K57.30 Diverticulosis of large intestine without perforation or abscess without bleeding (principal)

== ENCOUNTER → 2019-01-31 | Outpatient (CLI) | payer MEDICARE | LOC: GMATM 19:03 | PROVIDERS: ATTEND Nurse Practitioner Family | DX: N39.0 Urinary tract infection, site not specified (principal) ==

== ENCOUNTER → 2019-06-03 | Outpatient (CLI) | payer MEDICARE | LOC: CT 11:55 | PROVIDERS: ATTEND Family Medicine | DX: M47.27 Other spondylosis with radiculopathy, lumbosacral region (principal); M51.16 Intervertebral disc disorders with radiculopathy, lumbar region; M48.56XA Collapsed vertebra, not elsewhere classified, lumbar region, initial encounter for fracture ==

== ENCOUNTER → 2019-07-23 | Outpatient (CLI) | payer MEDICARE | LOC: GMAL 13:15 | PROVIDERS: ATTEND Family Medicine | DX: E83.42 Hypomagnesemia (principal); R00.2 Palpitations ==

== ENCOUNTER → 2019-08-21 | Outpatient (CLI) | payer MEDICARE ==
--- NOTE | 2019-08-22 21:09 | CT ---
EXAM DESCRIPTION: Chest w/wo Contrast : Computed Tomography. CLINICAL HISTORY: 74 years Female Chronic Obstructive Pulmonary Disease COMPARISON: CT scan of the chest with contrast May 2016. TECHNIQUE: Spiral-axial scans at 5 x 5 mm intervals through the lungs and thorax without and with 75 mL Optiray 320 nonionic IV contrast. Coronal and sagittal 2.0 mm Mm reconstructions. No adverse reactions. Total Exam DLP: Less than 355 mGy-cm. This exam was performed according to our departmental dose-optimization program which includes automated exposure control, adjustment of the mA and/or kV according to patient size and/or use of iterative reconstruction technique; to reduce radiation dose to as low as reasonably achievable (ALARA). Nodule measurements under 10 mm are given as mean value of 3 axes diameters. FINDINGS: Lungs and large airways: Bilateral pulmonary parenchymal blebs more prevalent in the upper lung brown. Pleural parenchymal scarring upper and lower lobes middle lobe and lingula. No abnormal nodules, no mass. No acute infiltrates. Pleural spaces: Bilateral pleural thickening apices right more than left and also bibasilar. No effusion or pneumothorax. Mediastinum and [place]: Small lymph nodes no dominant solid mass. Great vessels and Heart: Coronary artery calcium. Atherosclerotic calcifications brachiocephalic vessels and the aorta. Pacemaker upper anterior left chest pacing the right atrium and right ventricle left subclavian access. Thoracic aorta 3.1 cm just above the diaphragmatic hiatus. 2.2 cm just below the origin of the left subclavian artery. Proximal ascending aortic arch 3.1 cm. Soft tissues of neck base, axillae, and bilateral retroglandular breast implants. Chest wall: Evaluation limited due to lack of IV contrast. Tab Upper abdomen: No free air or free fluid. Fatty pancreas. Normal size of the adrenal glands. Osseous structures: Old compression fracture anterior L1 vertebral bodies 50% with retropulsion superior endplate stable since the prior study. There stenosis of the L1-L2 foramina. Anterior hardware in the cervical spine minimal loss of bone density in spondylosis. IMPRESSION: 1. Emphysematous changes in the lungs. No acute infiltrate and no mass. No abnormal nodules. 2. Stable atherosclerotic changes in the great vessels including mild dilation of the ascending aortic arch, descending aortic arch, and the distal thoracic aorta. Distal thoracic aorta is slightly more dilated compared to the prior study. 3. Stable L1 compression type vertebral body fracture. There stenosis of the bilateral L1-L2 foramina. Electronically signed by: Denton Kemp MD 08/22/2019 9:08 PM [facility]
== END ==
LOC: CT 14:00
PROVIDERS: ATTEND Family Medicine
DX: J43.9 Emphysema, unspecified (principal); I77.810 Thoracic aortic ectasia; I70.0 Atherosclerosis of aorta; M48.061 Spinal stenosis, lumbar region without neurogenic claudication; S32.010A Wedge compression fracture of first lumbar vertebra, initial encounter for closed fracture

== ENCOUNTER → 2019-12-29 | Outpatient (CLI) | payer MEDICARE | LOC: GMAL 11:45 | PROVIDERS: ATTEND Family Medicine | DX: R53.82 Chronic fatigue, unspecified (principal); Z79.899 Other long term (current) drug therapy; I10 Essential (primary) hypertension; E78.2 Mixed hyperlipidemia ==

== ENCOUNTER → 2020-05-12 | Outpatient (CLI) | payer MEDICARE ==
--- NOTE | 2020-05-12 16:47 | CT ---
EXAM DESCRIPTION: Pelvis CLINICAL HISTORY: 74 years Female, GENERALIZED ABDOMINAL PAIN COMPARISON: 01 March 2019 TECHNIQUE: Transaxial images were obtained without intravenous contrast media. Sagittal and coronal reconstruction was performed.This exam was performed according to our departmental dose-optimization program, which includes automated exposure control, adjustment of the mA and/or kV according to patient size and/or use of iterative reconstruction technique. FINDINGS: Diverticulosis of the sigmoid colon is observed without evidence of diverticulitis. No inguinal region abnormality is seen. The patient is post hysterectomy. Calcific atherosclerotic changes observed in the abdominal aorta and iliac vessels without evidence of aneurysmal dilatation. Mild degenerative changes are observed in the lower lumbar spine. No pelvic or femur fracturing is detected. IMPRESSION: 1. Uncomplicated diverticulosis of the colon. 2. Hysterectomy. Electronically signed by: Paco Bhagat MD 05/12/2020 4:45 PM [facility]
== END ==
LOC: CT 16:18
PROVIDERS: ATTEND Family Medicine Sports Medicine
DX: K57.30 Diverticulosis of large intestine without perforation or abscess without bleeding (principal); Z90.710 Acquired absence of both cervix and uterus

== ENCOUNTER → 2020-05-14 | Outpatient (CLI) | payer MEDICARE | LOC: LAB.O 15:07 | PROVIDERS: ATTEND Family Medicine Sports Medicine | DX: R19.7 Diarrhea, unspecified (principal) ==

== ENCOUNTER → 2020-06-19 | Outpatient (CLI) | payer MEDICARE | LOC: GMALS 15:44 | PROVIDERS: ATTEND Nurse Practitioner Acute Care | DX: N30.00 Acute cystitis without hematuria (principal) ==

== ENCOUNTER → 2020-08-11 | Outpatient (CLI) | payer MEDICARE | LOC: GMAL 16:55 | PROVIDERS: ATTEND Family Medicine | DX: N39.0 Urinary tract infection, site not specified (principal) ==